=== PATIENT | male | born 1965 | race Caucasian/White ===

== ENCOUNTER 2017-11-18 00:05 | Day surgery (SDC) | payer MEDICARE, SELFPAY ==
[~2017-11-18 00:05] MED LIST: AMOCLA875 PO; ASPI325 PO; Bactrim Ds Tab1 EACH PO; CEPH500 PO; CIPR500 PO; CIPRO500 MG PO; CLOP75 PO; Cipro500 MG PO; Cleocin HCl150 MG PO; Cleocin HCl300 MG PO; Colace100 MG PO; FISH1000 PO; HYDR1TAB94 PO; Humalog Mi100 UNIT/4; INSN100I SC; INSR10I SC; Keflex500 MG PO; LEVEMIR FL100 UNIT/1 SC; LEVFLO500 PO; LOVA40; METF500 PO; METF500C PO; METO10 PO; MINO100 PO; OMEP20ER PO; ONDA4ODT MM; OXYACE5T PO; OXYACE7.5T PO; OXYC5 PO; Omeprazole20 M1 PO; PSYL5.85P PO; Percocet 5-3251 EACH PO; Pyridium200 MG PO; SULTRIDS PO; TOBR.3OPSO LEFTEYE; Vibramycin100 MG PO; [UNRECOGNIZED DRUG - OTHER] PO; [UNRECOGNIZED DRUG - OTHER] PO; [UNRECOGNIZED DRUG - REMARK]
[2018-01-23] MEDS ORDERED: INSDET100 PO (09:58)
[2018-01-23] MEDS ORDERED: AMOX TR K (10:04)
== END 2017-11-18 10:52 | disposition home or self-care (01) ==
LOC: WOUND 00:05
DX: Z48.00 Encounter for change or removal of nonsurgical wound dressing (principal); E11.59 Type 2 diabetes mellitus with other circulatory complications; L89.893 Pressure ulcer of other site, stage 3; E11.21 Type 2 diabetes mellitus with diabetic nephropathy; I70.232 Atherosclerosis of native arteries of right leg with ulceration of calf; F17.210 Nicotine dependence, cigarettes, uncomplicated; Z89.512 Acquired absence of left leg below knee; Z89.511 Acquired absence of right leg below knee; Z79.4 Long term (current) use of insulin
CPT/HCPCS: G0463

== ENCOUNTER 2017-11-25 12:27 | Day surgery (SDC) | payer MEDICARE, SELFPAY ==
[2018-01-23] MEDS ORDERED: INSDET100 PO (09:58)
[2018-01-23] MEDS ORDERED: AMOX TR K (10:04)
== END 2017-11-25 13:22 | disposition home or self-care (01) ==
LOC: WOUND 12:27
PROC: 2W0LX6Z Change Pressure Dressing on Right Lower Extremity (ICD-10-PCS; principal; 2017-11-25)
DX: Z48.00 Encounter for change or removal of nonsurgical wound dressing (principal); E11.621 Type 2 diabetes mellitus with foot ulcer; F17.218 Nicotine dependence, cigarettes, with other nicotine-induced disorders; L89.893 Pressure ulcer of other site, stage 3; I70.232 Atherosclerosis of native arteries of right leg with ulceration of calf; Z89.512 Acquired absence of left leg below knee; Z89.511 Acquired absence of right leg below knee

== ENCOUNTER 2017-11-28 00:26 | Day surgery (SDC) | payer MEDICARE, SELFPAY ==
[2018-01-23] MEDS ORDERED: INSDET100 PO (09:58)
[2018-01-23] MEDS ORDERED: AMOX TR K (10:04)
== END 2017-11-28 10:42 | disposition home or self-care (01) ==
LOC: ATC 00:26
DX: E11.622 Type 2 diabetes mellitus with other skin ulcer (principal); L97.812 Non-pressure chronic ulcer of other part of right lower leg with fat layer exposed; L97.821 Non-pressure chronic ulcer of other part of left lower leg limited to breakdown of skin; L85.9 Epidermal thickening, unspecified; E11.21 Type 2 diabetes mellitus with diabetic nephropathy; L89.891 Pressure ulcer of other site, stage 1; F17.218 Nicotine dependence, cigarettes, with other nicotine-induced disorders; I70.232 Atherosclerosis of native arteries of right leg with ulceration of calf; Z89.512 Acquired absence of left leg below knee; Z89.511 Acquired absence of right leg below knee
CPT/HCPCS: 99212

== ENCOUNTER 2017-11-30 00:22 | Day surgery (SDC) | payer MEDICARE, SELFPAY ==
[2018-01-23] MEDS ORDERED: INSDET100 PO (09:58)
[2018-01-23] MEDS ORDERED: AMOX TR K (10:04)
== END 2017-11-30 11:27 | disposition home or self-care (01) ==
LOC: ATC 00:22
DX: Z48.00 Encounter for change or removal of nonsurgical wound dressing (principal); I70.232 Atherosclerosis of native arteries of right leg with ulceration of calf; E11.622 Type 2 diabetes mellitus with other skin ulcer; L97.821 Non-pressure chronic ulcer of other part of left lower leg limited to breakdown of skin; L97.812 Non-pressure chronic ulcer of other part of right lower leg with fat layer exposed; F17.218 Nicotine dependence, cigarettes, with other nicotine-induced disorders; E11.21 Type 2 diabetes mellitus with diabetic nephropathy; Z89.512 Acquired absence of left leg below knee; Z89.511 Acquired absence of right leg below knee
CPT/HCPCS: 99212

== ENCOUNTER 2017-12-02 12:30 | Day surgery (SDC) | payer MEDICARE, SELFPAY ==
[2018-01-23] MEDS ORDERED: INSDET100 PO (09:58)
[2018-01-23] MEDS ORDERED: AMOX TR K (10:04)
== END 2017-12-02 15:38 | disposition home or self-care (01) ==
LOC: WOUND 12:30
PROC: 2W1QX6Z Compression of Right Lower Leg using Pressure Dressing (ICD-10-PCS; principal; 2017-12-02)
DX: Z48.00 Encounter for change or removal of nonsurgical wound dressing (principal); E11.21 Type 2 diabetes mellitus with diabetic nephropathy; E11.51 Type 2 diabetes mellitus with diabetic peripheral angiopathy without gangrene; F17.210 Nicotine dependence, cigarettes, uncomplicated; L89.893 Pressure ulcer of other site, stage 3; I70.232 Atherosclerosis of native arteries of right leg with ulceration of calf; Z89.511 Acquired absence of right leg below knee

== ENCOUNTER 2017-12-07 11:00 | Day surgery (SDC) | payer MEDICARE, SELFPAY ==
[2018-01-23] MEDS ORDERED: INSDET100 PO (09:58)
[2018-01-23] MEDS ORDERED: AMOX TR K (10:04)
== END 2017-12-07 14:52 | disposition home or self-care (01) ==
LOC: WOUND 11:00
PROC: 2W1QX6Z Compression of Right Lower Leg using Pressure Dressing (ICD-10-PCS; principal; 2017-12-07)
DX: Z48.00 Encounter for change or removal of nonsurgical wound dressing (principal); E11.21 Type 2 diabetes mellitus with diabetic nephropathy; F17.210 Nicotine dependence, cigarettes, uncomplicated; L89.893 Pressure ulcer of other site, stage 3; I70.232 Atherosclerosis of native arteries of right leg with ulceration of calf; Z89.512 Acquired absence of left leg below knee; Z89.511 Acquired absence of right leg below knee

== ENCOUNTER 2017-12-13 10:00 | Day surgery (SDC) | payer MEDICARE, SELFPAY ==
[2018-01-23] MEDS ORDERED: INSDET100 PO (09:58)
[2018-01-23] MEDS ORDERED: AMOX TR K (10:04)
== END 2017-12-13 12:54 | disposition home or self-care (01) ==
LOC: WOUND 10:00
PROC: 2W1QX6Z Compression of Right Lower Leg using Pressure Dressing (ICD-10-PCS; principal; 2017-12-13)
DX: Z48.00 Encounter for change or removal of nonsurgical wound dressing (principal); E11.21 Type 2 diabetes mellitus with diabetic nephropathy; F17.210 Nicotine dependence, cigarettes, uncomplicated; L89.893 Pressure ulcer of other site, stage 3; I70.232 Atherosclerosis of native arteries of right leg with ulceration of calf; Z79.4 Long term (current) use of insulin; Z89.512 Acquired absence of left leg below knee; Z89.511 Acquired absence of right leg below knee
CPT/HCPCS: G0463

== ENCOUNTER 2017-12-20 16:50 | Inpatient (IN) | payer MEDICARE, SELFPAY ==
[~2017-12-20] VITALS: Ht 157.5 cm; Wt 62.4 kg
[2017-12-20 18:05] LABS: BASOPHILS ABSOLUTE AUTO 0.07 K/mm3 (0.00-0.23); BASOPHILS PERCENT AUTO 1 % (0-2); EOSINOPHILS ABSOLUTE AUTO 0.23 K/mm3 (0.00-0.68); EOSINOPHILS PERCENT AUTO 3 % (0-6); Hematocrit 41.2 % (37.0-53.0); Hemoglobin 13.9 g/dL (13.5-17.5); IMMATURE GRAN ABSOLUTE AUTO 0.03 K/mm3 (0.00-0.10); IMMATURE GRAN PERCENT AUTO 0 % (0-1); LYMPHOCYTES PERCENT AUTO 22 % (21-46); MONOCYTES ABSOLUTE AUTO 0.53 K/mm3 (0.16-1.47); MONOCYTES PERCENT AUTO 6 % (4-13); Mean Corpuscular HGB 28.2 pg (26.0-34.0); Mean Corpuscular HGB Conc 33.7 g/dL (31.5-36.5); Mean Corpuscular Volume 84 fL (80-100); Mean Platelet Volume 9.2 fL (9.1-12.4); NEUTROPHILS ABSOLUTE AUTO 5.57 K/mm3 (1.96-9.15); NEUTROPHILS PERCENT AUTO 68 % (41-73); Platelet Count 235 K/mm3 (150-400); RDW Coefficient Variation 11.9 % (11.7-14.2); RDW Standard Deviation 36.2 fL (35.1-46.3); Red Blood Cell Count 4.93 M/mm3 (4.30-5.90); White Blood Cell Count 8.23 K/mm3 (4.00-11.30)
[2017-12-20 18:30] LABS: Alanine Aminotransfer (ALT/SGP 13 U/L (12-78); Albumin/Globulin Ratio 0.7 (0.8-1.8); Alk Phos 131 U/L (50-136); Anion Gap 7 mmol/L (6-16); Aspartate Aminotrans (AST/SGOT 7 U/L (12-37); Bilirubin, Total 0.4 mg/dL (0.1-1.0); Blood Urea Nitrogen 21 mg/dL (8-24); Bun/Creatinine Ratio 26.1 (12.0-20.0); CO2, Blood 29 mmol/L (21-32); Calcium, Blood 9.6 mg/dL (8.5-10.1); Chloride, Blood 97 mmol/L (98-108); Creatinine, Blood 0.81 mg/dL (0.60-1.20); Globulin, Blood 4.2 g/dL (2.2-4.0); Glomerular Filtration Rate >60 (60-); Glucose, Blood 439 mg/dL (70-99); Potassium, Blood 4.9 mmol/L (3.5-5.5); Sodium, Blood 133 mmol/L (136-145); Total Protein, Blood 7.2 g/dL (6.4-8.2)
[2017-12-21 05:41] LABS: BASOPHILS ABSOLUTE AUTO 0.09 K/mm3 (0.00-0.23); BASOPHILS PERCENT AUTO 1 % (0-2); EOSINOPHILS ABSOLUTE AUTO 0.37 K/mm3 (0.00-0.68); EOSINOPHILS PERCENT AUTO 4 % (0-6); Hematocrit 39.2 % (37.0-53.0); Hemoglobin 13.4 g/dL (13.5-17.5); IMMATURE GRAN ABSOLUTE AUTO 0.04 K/mm3 (0.00-0.10); IMMATURE GRAN PERCENT AUTO 0 % (0-1); LYMPHOCYTES ABSOLUTE AUTO 2.37 K/mm3 (0.84-5.20); LYMPHOCYTES PERCENT AUTO 24 % (21-46); MONOCYTES ABSOLUTE AUTO 0.78 K/mm3 (0.16-1.47); MONOCYTES PERCENT AUTO 8 % (4-13); Mean Corpuscular HGB Conc 34.2 g/dL (31.5-36.5); Mean Corpuscular Volume 85 fL (80-100); Mean Platelet Volume 9.1 fL (9.1-12.4); NEUTROPHILS ABSOLUTE AUTO 6.26 K/mm3 (1.96-9.15); NEUTROPHILS PERCENT AUTO 63 % (41-73); Platelet Count 265 K/mm3 (150-400); RDW Coefficient Variation 11.9 % (11.7-14.2); RDW Standard Deviation 36.9 fL (35.1-46.3); Red Blood Cell Count 4.62 M/mm3 (4.30-5.90); White Blood Cell Count 9.91 K/mm3 (4.00-11.30)
[2017-12-21 06:02] LABS: Anion Gap 6 mmol/L (6-16); Blood Urea Nitrogen 19 mg/dL (8-24); Bun/Creatinine Ratio 23.5 (12.0-20.0); CO2, Blood 31 mmol/L (21-32); Calcium, Blood 9.1 mg/dL (8.5-10.1); Chloride, Blood 98 mmol/L (98-108); Creatinine, Blood 0.81 mg/dL (0.60-1.20); Glomerular Filtration Rate >60 (60-); Glucose, Blood 318 mg/dL (70-99); Potassium, Blood 4.4 mmol/L (3.5-5.5); Sodium, Blood 135 mmol/L (136-145)
[2017-12-24 04:53] LABS: BASOPHILS ABSOLUTE AUTO 0.06 K/mm3 (0.00-0.23); BASOPHILS PERCENT AUTO 1 % (0-2); EOSINOPHILS ABSOLUTE AUTO 0.24 K/mm3 (0.00-0.68); EOSINOPHILS PERCENT AUTO 3 % (0-6); Hematocrit 34.5 % (37.0-53.0); Hemoglobin 11.5 g/dL (13.5-17.5); IMMATURE GRAN ABSOLUTE AUTO 0.02 K/mm3 (0.00-0.10); IMMATURE GRAN PERCENT AUTO 0 % (0-1); LYMPHOCYTES ABSOLUTE AUTO 1.46 K/mm3 (0.84-5.20); LYMPHOCYTES PERCENT AUTO 18 % (21-46); MONOCYTES ABSOLUTE AUTO 0.76 K/mm3 (0.16-1.47); MONOCYTES PERCENT AUTO 9 % (4-13); Mean Corpuscular HGB 28.3 pg (26.0-34.0); Mean Corpuscular HGB Conc 33.3 g/dL (31.5-36.5); Mean Corpuscular Volume 85 fL (80-100); NEUTROPHILS ABSOLUTE AUTO 5.71 K/mm3 (1.96-9.15); NEUTROPHILS PERCENT AUTO 69 % (41-73); Platelet Count 198 K/mm3 (150-400); RDW Coefficient Variation 11.9 % (11.7-14.2); RDW Standard Deviation 36.4 fL (35.1-46.3); Red Blood Cell Count 4.07 M/mm3 (4.30-5.90); White Blood Cell Count 8.25 K/mm3 (4.00-11.30)
[2017-12-24 05:18] LABS: Anion Gap 6 mmol/L (6-16); Blood Urea Nitrogen 16 mg/dL (8-24); Bun/Creatinine Ratio 19.4 (12.0-20.0); CO2, Blood 31 mmol/L (21-32); Calcium, Blood 8.8 mg/dL (8.5-10.1); Chloride, Blood 101 mmol/L (98-108); Creatinine, Blood 0.82 mg/dL (0.60-1.20); Glomerular Filtration Rate >60 (60-); Glucose, Blood 238 mg/dL (70-99); Potassium, Blood 3.9 mmol/L (3.5-5.5); Sodium, Blood 138 mmol/L (136-145)
[2017-12-25 08:10] LABS: Anion Gap 6 mmol/L (6-16); Blood Urea Nitrogen 13 mg/dL (8-24); Bun/Creatinine Ratio 18.5 (12.0-20.0); CO2, Blood 30 mmol/L (21-32); Calcium, Blood 8.7 mg/dL (8.5-10.1); Chloride, Blood 100 mmol/L (98-108); Glomerular Filtration Rate >60 (60-); Glucose, Blood 225 mg/dL (70-99); Sodium, Blood 136 mmol/L (136-145)
[2017-12-25] MEDS ORDERED: NESINA25 MG PO (09:26)
[2017-12-25] MEDS ORDERED: Juven1 EACH PO (09:26)
[2017-12-25] MEDS ORDERED: ASCO500 PO (09:27)
[2017-12-25] MEDS ORDERED: DOCU100 PO (09:27)
[2017-12-25] MEDS ORDERED: LEVEMIR FL100 UNIT/1 SC (09:28)
[2017-12-25] MEDS ORDERED: Augmentin 875-1 EACH PO (09:33)
[2017-12-25] MEDS ORDERED: THERA TABLET400 MCG PO (09:33)
[2017-12-25] MEDS ORDERED: ZINC220 PO (09:33)
[2017-12-25] MEDS ORDERED: Percocet 5-3251 EACH PO (09:35)
[2018-01-23] MEDS ORDERED: INSDET100 PO (09:58)
[2018-01-23] MEDS ORDERED: AMOX TR K (10:04)
== END 2017-12-25 15:25 | disposition home or self-care (01) | DRG 982 ==
LOC: ER 16:50 → MEDS 19:30 → ENPENDDIS 12-25 09:02 → MEDS 12-25 15:25
PROVIDERS: Internal Medicine; Internal Medicine Endocrinology, Diabetes & Metabolism; Orthopaedic Surgery; Physician Assistant
PROC: 3E0234Z Introduction of Serum, Toxoid and Vaccine into Muscle, Percutaneous Approach (ICD-10-PCS; 2017-12-21)
PROC: 0QBG0ZZ Excision of Right Tibia, Open Approach (ICD-10-PCS; principal; 2017-12-23 15:15)
DX: E11.69 Type 2 diabetes mellitus with other specified complication (principal); M86.9 Osteomyelitis, unspecified; E11.51 Type 2 diabetes mellitus with diabetic peripheral angiopathy without gangrene; E11.622 Type 2 diabetes mellitus with other skin ulcer; K31.84 Gastroparesis; E11.40 Type 2 diabetes mellitus with diabetic neuropathy, unspecified; E11.3599 Type 2 diabetes mellitus with proliferative diabetic retinopathy without macular edema, unspecified eye; E87.1 Hypo-osmolality and hyponatremia; L97.119 Non-pressure chronic ulcer of right thigh with unspecified severity; L97.819 Non-pressure chronic ulcer of other part of right lower leg with unspecified severity; Z23 Encounter for immunization; Z89.512 Acquired absence of left leg below knee; Z89.511 Acquired absence of right leg below knee; F17.210 Nicotine dependence, cigarettes, uncomplicated; K21.9 Gastro-esophageal reflux disease without esophagitis; Z66 Do not resuscitate; Z91.19 Patient's noncompliance with other medical treatment and regimen; E11.65 Type 2 diabetes mellitus with hyperglycemia; E11.43 Type 2 diabetes mellitus with diabetic autonomic (poly)neuropathy; Z99.3 Dependence on wheelchair
CPT/HCPCS: 36415; 78300; 78315; 80048; 80053; 82947; 83036; 84681; 85025; 85651; 86140; 87070; 87075; 87077; 87147; 87186; 87205; 93005; 93010; 96361; 96374; 96375; 99285; A9270; A9503; C9113; G0463; J1170; J1650; J1815; J2250; J2543; J3010; J7030; J7120

== ENCOUNTER 2017-12-28 00:07 | Day surgery (SDC) | payer MEDICARE, SELFPAY ==
[~2017-12-28 00:07] MED LIST changes: +ASCO500 PO; +Augmentin 875-1 EACH PO; +DOCU100 PO; +Juven1 EACH PO; +NESINA25 MG PO; +THERA TABLET400 MCG PO; +ZINC220 PO
[2018-01-23] MEDS ORDERED: INSDET100 PO (09:58)
[2018-01-23] MEDS ORDERED: AMOX TR K (10:04)
== END 2017-12-28 11:40 | disposition home or self-care (01) ==
LOC: WOUND 00:07
DX: Z48.00 Encounter for change or removal of nonsurgical wound dressing (principal); E11.21 Type 2 diabetes mellitus with diabetic nephropathy; E11.622 Type 2 diabetes mellitus with other skin ulcer; F17.210 Nicotine dependence, cigarettes, uncomplicated; L89.893 Pressure ulcer of other site, stage 3; I70.232 Atherosclerosis of native arteries of right leg with ulceration of calf; Z89.511 Acquired absence of right leg below knee
CPT/HCPCS: G0463

== ENCOUNTER 2018-01-02 00:13 | Day surgery (SDC) | payer MEDICARE, SELFPAY ==
[2018-01-23] MEDS ORDERED: INSDET100 PO (09:58)
[2018-01-23] MEDS ORDERED: AMOX TR K (10:04)
== END 2018-01-02 14:34 | disposition home or self-care (01) ==
LOC: WOUND 00:13
PROC: 0KBS0ZZ Excision of Right Lower Leg Muscle, Open Approach (ICD-10-PCS; principal; 2018-01-02)
DX: Z48.00 Encounter for change or removal of nonsurgical wound dressing (principal); E11.69 Type 2 diabetes mellitus with other specified complication; M86.8X6 Other osteomyelitis, lower leg; B96.89 Other specified bacterial agents as the cause of diseases classified elsewhere; B95.61 Methicillin susceptible Staphylococcus aureus infection as the cause of diseases classified elsewhere; L89.893 Pressure ulcer of other site, stage 3; E11.622 Type 2 diabetes mellitus with other skin ulcer; T81.89XA Other complications of procedures, not elsewhere classified, initial encounter; L97.912 Non-pressure chronic ulcer of unspecified part of right lower leg with fat layer exposed; I70.232 Atherosclerosis of native arteries of right leg with ulceration of calf; E11.21 Type 2 diabetes mellitus with diabetic nephropathy; F17.218 Nicotine dependence, cigarettes, with other nicotine-induced disorders; Z89.512 Acquired absence of left leg below knee; Z89.511 Acquired absence of right leg below knee
CPT/HCPCS: G0463

== ENCOUNTER 2018-01-09 00:02 | Day surgery (SDC) | payer MEDICARE, SELFPAY ==
[2018-01-23] MEDS ORDERED: INSDET100 PO (09:58)
[2018-01-23] MEDS ORDERED: AMOX TR K (10:04)
== END 2018-01-09 10:29 | disposition home or self-care (01) ==
LOC: WOUND 00:02
DX: Z48.01 Encounter for change or removal of surgical wound dressing (principal); E11.69 Type 2 diabetes mellitus with other specified complication; M86.9 Osteomyelitis, unspecified; Z89.512 Acquired absence of left leg below knee; Z89.511 Acquired absence of right leg below knee; F17.210 Nicotine dependence, cigarettes, uncomplicated; E11.21 Type 2 diabetes mellitus with diabetic nephropathy; I73.9 Peripheral vascular disease, unspecified; L89.893 Pressure ulcer of other site, stage 3; I70.232 Atherosclerosis of native arteries of right leg with ulceration of calf
CPT/HCPCS: G0463

== ENCOUNTER 2018-01-16 00:19 | Day surgery (SDC) | payer MEDICARE, SELFPAY ==
[2018-01-23] MEDS ORDERED: INSDET100 PO (09:58)
[2018-01-23] MEDS ORDERED: AMOX TR K (10:04)
== END 2018-01-16 12:14 | disposition home or self-care (01) ==
LOC: WOUND 00:19
DX: Z48.01 Encounter for change or removal of surgical wound dressing (principal); Z89.512 Acquired absence of left leg below knee; Z89.511 Acquired absence of right leg below knee; E11.21 Type 2 diabetes mellitus with diabetic nephropathy; F17.218 Nicotine dependence, cigarettes, with other nicotine-induced disorders; L89.893 Pressure ulcer of other site, stage 3; I70.232 Atherosclerosis of native arteries of right leg with ulceration of calf; T81.89XA Other complications of procedures, not elsewhere classified, initial encounter
CPT/HCPCS: G0463

== ENCOUNTER 2018-01-25 06:00 | Inpatient (IN) | payer MEDICARE, SELFPAY ==
[~2018-01-25] VITALS: Ht 182.9 cm; Wt 62.1 kg
[~2018-01-25 06:00] MED LIST changes: +AMOX TR K; +INSDET100 PO
[2018-01-25 11:07] LABS: Hematocrit 33.1 % (37.0-53.0); Hemoglobin 10.9 g/dL (13.5-17.5)
[2018-01-25] MEDS ORDERED: Omeprazole20 M1 PO (11:17)
[2018-01-26 06:10] LABS: BASOPHILS ABSOLUTE AUTO 0.03 K/mm3 (0.00-0.23); BASOPHILS PERCENT AUTO 0 % (0-2); EOSINOPHILS ABSOLUTE AUTO 0.02 K/mm3 (0.00-0.68); EOSINOPHILS PERCENT AUTO 0 % (0-6); Hematocrit 30.5 % (37.0-53.0); Hemoglobin 9.8 g/dL (13.5-17.5); IMMATURE GRAN ABSOLUTE AUTO 0.03 K/mm3 (0.00-0.10); IMMATURE GRAN PERCENT AUTO 0 % (0-1); LYMPHOCYTES ABSOLUTE AUTO 1.73 K/mm3 (0.84-5.20); LYMPHOCYTES PERCENT AUTO 18 % (21-46); MONOCYTES ABSOLUTE AUTO 0.77 K/mm3 (0.16-1.47); MONOCYTES PERCENT AUTO 8 % (4-13); Mean Corpuscular HGB 27.8 pg (26.0-34.0); Mean Corpuscular HGB Conc 32.1 g/dL (31.5-36.5); Mean Corpuscular Volume 86 fL (80-100); Mean Platelet Volume 9.2 fL (9.1-12.4); NEUTROPHILS ABSOLUTE AUTO 6.99 K/mm3 (1.96-9.15); NEUTROPHILS PERCENT AUTO 73 % (41-73); Platelet Count 170 K/mm3 (150-400); RDW Coefficient Variation 12.9 % (11.7-14.2); RDW Standard Deviation 40.4 fL (35.1-46.3); Red Blood Cell Count 3.53 M/mm3 (4.30-5.90); White Blood Cell Count 9.57 K/mm3 (4.00-11.30)
[2018-01-26 06:35] LABS: Alanine Aminotransfer (ALT/SGP 21 U/L (12-78); Albumin, Blood 2.9 g/dL (3.4-5.0); Albumin/Globulin Ratio 0.9 (0.8-1.8); Alk Phos 131 U/L (50-136); Anion Gap 7 mmol/L (6-16); Aspartate Aminotrans (AST/SGOT 10 U/L (12-37); Bilirubin, Total 0.2 mg/dL (0.1-1.0); Blood Urea Nitrogen 24 mg/dL (8-24); Bun/Creatinine Ratio 37.8 (12.0-20.0); CHOL/HDL RATIO 7.4; CO2, Blood 29 mmol/L (21-32); Calcium, Blood 8.8 mg/dL (8.5-10.1); Chloride, Blood 101 mmol/L (98-108); Cholesterol 236 mg/dL (50-200); Creatinine, Blood 0.64 mg/dL (0.60-1.20); Globulin, Blood 3.3 g/dL (2.2-4.0); Glomerular Filtration Rate >60 (60-); Glucose, Blood 266 mg/dL (70-99); HDL Cholesterol 32 mg/dL (>39); Magnesium, Blood 1.8 mg/dL (1.6-2.4); Potassium, Blood 4.4 mmol/L (3.5-5.5); Sodium, Blood 137 mmol/L (136-145); Total Protein, Blood 6.2 g/dL (6.4-8.2); Triglycerides 412 mg/dL (30-160); Very Low Density Lipoprot Chol Unable to Calculate mg/dL (6-32)
[2018-01-26 06:36] LABS: LDL/HDL RATIO Unable to Calculate; Low Density Lipoprotein Chol Unable to Calculate mg/dL (0-110)
[2018-01-26] MEDS ORDERED: Percocet 5-3251 EACH PO (12:37)
[2018-01-26] MEDS ORDERED: DOCU100 PO (12:38)
[2018-01-26] MEDS ORDERED: Lisinopril2.5 MG PO (12:39)
[2018-01-26] MEDS ORDERED: ATOR10 PO (12:39)
[2018-01-26] MEDS ORDERED: METO10 PO (12:40)
== END 2018-01-26 12:30 | disposition home or self-care (01) | DRG 617 ==
LOC: SURS 06:00
PROVIDERS: Orthopaedic Surgery
PROC: 0Y6C0Z1 Detachment at Right Upper Leg, High, Open Approach (ICD-10-PCS; principal; 2018-01-25 07:30)
DX: E11.69 Type 2 diabetes mellitus with other specified complication (principal); M86.9 Osteomyelitis, unspecified; K31.84 Gastroparesis; E11.65 Type 2 diabetes mellitus with hyperglycemia; E11.43 Type 2 diabetes mellitus with diabetic autonomic (poly)neuropathy; Z68.1 Body mass index [BMI] 19.9 or less, adult; F17.210 Nicotine dependence, cigarettes, uncomplicated; K21.9 Gastro-esophageal reflux disease without esophagitis; Z79.4 Long term (current) use of insulin
CPT/HCPCS: 36415; 80048; 80053; 80061; 82947; 83036; 83735; 85014; 85018; 85025; 88307; 88311; 97110; 97162; 97530; G8978; G8979; G8980; J0690; J1100; J1170; J1815; J1817; J2250; J2370; J2405; J2765; J3010; J7030; J7120

== ENCOUNTER 2019-01-02 16:21 | Inpatient (IN) | payer MEDICARE ==
[~2019-01-02] VITALS: Ht 177.8 cm; Wt 61.4 kg
[~2019-01-02 16:21] MED LIST changes: +ATOR10 PO; +Lisinopril2.5 MG PO
[2019-01-02 16:40] LABS: Calcium, Ionized (POC) 1.45 mmol/L (1.10-1.46); Chloride (POC) 75 mmol/L (98-108); Glucose (ISTAT POC) 279 mg/dL (70-99); Hemoglobin (POC) 10.2 g/dL (13.5-17.5); Potassium (POC) 4.9 mmol/L (3.5-5.5); Sodium (POC) 123 mmol/L (135-148); Total CO2 (POC) 38 mmol/L (21-32)
[2019-01-02 16:45] LABS: Hemoglobin 11.2 g/dL (13.5-17.5); Mean Corpuscular HGB 29.1 pg (26.0-34.0); Mean Corpuscular Volume 83 fL (80-100); Mean Platelet Volume 9.9 fL (9.1-12.4); Platelet Count 179 K/mm3 (150-400); RDW Coefficient Variation 11.7 % (11.7-14.2); RDW Standard Deviation 35.1 fL (35.1-46.3); Red Blood Cell Count 3.85 M/mm3 (4.30-5.90); White Blood Cell Count 5.26 K/mm3 (4.00-11.30)
[2019-01-02 17:17] LABS: Troponin I 0.022 ng/mL (0.000-0.040)
[2019-01-02 17:18] LABS: BAND PERCENT MAN 11 % (0-8); BASOPHILS PERCENT MAN 0 % (0-2); EOSINOPHILS PERCENT MAN 0 % (0-6); LYMPHOCYTES ABSOLUTE MAN 0.57 K/mm3 (0.84-5.20); LYMPHOCYTES PERCENT MAN 11 % (21-46); METAMYELOCYTE ABSOLUTE MAN 0.73 K/mm3 (0.00-0.00); METAMYELOCYTE PERCENT MAN 14 % (0-0); MONOCYTES ABSOLUTE MAN 0.47 K/mm3 (0.16-1.47); MONOCYTES PERCENT MAN 9 % (4-13); MYELOCYTE ABSOLUTE MAN 0.05 K/mm3 (0.00-0.00); MYELOCYTE PERCENT MAN 1 % (0-0); NEUTROPHILS ABSOLUTE MAN 3.41 K/mm3 (1.96-9.15); SEG NEUTROPHILS PERCENT MAN 54 % (41-73); TOTAL CELLS COUNTED 100
--- NOTE | 2019-01-02 17:56 | NUR ---
Initial Visit: Palliative Care Consult for goals of care. Pt is A&O x3 and reports 7/10 pain in his abdomen. His Marquita is present during visit. Pt reports 4/10 anxiety due to wanting to be home. Initialy Pt refused Larry Catheter but is now will to accept due to the discomfort he is having. Pt lives at home with Marquita who is his primary caregiver. Marquita reports Pt had oppertunities in the past for caregivers to assist with his needs in the home but refuses. Marquita reports Pt has uncontroled diabetes and is non compliant with his management. He has had 5 digits and extremity amputations. Marquita reports the Pt is not open to any worship beliefs. She reports the Pt is comfort measures only and his wishes are to recieve hospice services and pass away at home. Pt reports that he does not want to be admitted to hospital on comfort measures. Marquita states that she would like to wait for the diognostic results before making any further decision about Pt discharging home from the ED. Spoke with Pt's nurse Jane before visiting with Pt and she reported Pt wants hospice services. Discussion was made about the [facility] Spoke with Dr Irving before Pt visit. She reports willing to admit Pt on comfort care if he is willing to accept. After visist spoke Dr Irving about Pt's refusal to be admitted for comfort care and Pt's discussion about waiting for further test results before making any decisions. Dr Irving reports results show Pt has pneumonia and she will offer admiting Pt. Plan: Will F/U with Pt on the floor if he is admitted.
[2019-01-02 18:02] LABS: Alanine Aminotransfer (ALT/SGP 9 U/L (12-78); Albumin, Blood 2.3 g/dL (3.4-5.0); Albumin/Globulin Ratio 0.7 (0.8-1.8); Alk Phos 65 U/L (50-136); Anion Gap 11 mmol/L (6-16); Aspartate Aminotrans (AST/SGOT <3 U/L (12-37); Bilirubin, Total 0.4 mg/dL (0.1-1.0); Blood Urea Nitrogen 190 mg/dL (8-24); Bun/Creatinine Ratio 21.5 (12.0-20.0); CO2, Blood 37 mmol/L (21-32); Calcium, Blood 12.1 mg/dL (8.5-10.1); Chloride, Blood 78 mmol/L (98-108); Creatinine, Blood 8.83 mg/dL (0.60-1.20); Globulin, Blood 3.4 g/dL (2.2-4.0); Glomerular Filtration Rate 7 (60-); Glucose, Blood 274 mg/dL (70-99); Magnesium, Blood 6.5 mg/dL (1.6-2.4); Potassium, Blood 4.9 mmol/L (3.5-5.5); Sodium, Blood 126 mmol/L (136-145); Total Protein, Blood 5.7 g/dL (6.4-8.2)
[2019-01-02 18:22] LABS: Source, Urine Clean Catch
[2019-01-02] MEDS ORDERED: **INCOMPLETE MED REC (18:22)
[2019-01-02 18:30] LABS: Appearance, Urine Clear (Clear); Bilirubin, Urine Neg (Neg); Blood, Urine 1+ (Neg); Color, Urine Yellow (P-Yellow); Glucose Qualitative, Urine 3+ (Neg); Ketones, Urine Neg (Neg); Leukocyte Esterase, Urine 1+ (Neg); Nitrite, Urine Neg (Neg); Protein, Urine 2+ (Neg); Specific Gravity, Urine 1.015 (1.003-1.022); Urobilinogen, Urine NORM (Normal)
[2019-01-02 18:45] LABS: Red Blood Cells, Urine 0-2 /hpf (0-2)
[2019-01-02 18:46] LABS: Amorphous Mod (0-Heavy); Bacteria Mod /hpf; Squamous Epithelial Cells Not Seen /hpf (Few)
[2019-01-02] MEDS ORDERED: Omeprazole20 M1 PO (18:51)
[2019-01-02 18:59] LABS: International Normalized Ratio 1.16; Prothrombin Time Results 12.1 Sec (9.7-11.5)
[2019-01-02 19:23] LABS: Influenza A Negative (NEGATIVE); Influenza B Negative (NEGATIVE)
[2019-01-02 20:19] LABS: Phosphorus, Blood 5.4 mg/dL (2.5-4.9); Uric Acid, Blood 12.1 mg/dL (3.5-7.2)
[2019-01-02 20:22] LABS: U Amphetamine Screen Not Detected; U Barbituate Screen Not Detected; U Benzodiazapine Screen Not Detected; U Buprenorphine Screen Not Detected; U Cannabinoids Screen Not Detected; U Cocaine Screen Not Detected; U Methadone Screen Not Detected; U Methamphetamine Screen Not Detected; U Opiates Screen Not Detected; U Oxycodone Screen Not Detected; U Phencyclidine Screen Not Detected; U Propoxyphene Screen Not Detected
[2019-01-02 20:31] LABS: Creatinine, Urine Random 48.5 mg/dL (27.00-270.00)
[2019-01-02 22:46] LABS: Bun/Creatinine Ratio 22.9 (12.0-20.0); Creatinine, Blood 8.17 mg/dL (0.60-1.20); Potassium, Blood 5.1 mmol/L (3.5-5.5)
--- NOTE | 2019-01-03 05:03 | NUR ---
SHIFT SUMMARY PT IS A 53 Y/O MALE, ADMITTED ON COMFORT CARE FOR SEPTIC SHOCK. THE PT HAS BEEN VERY CONFUSED AND DISORIENTED DURING THE NIGHT, HALLUCINATING AND GRABBING AT THE AIR. THE PT APPEARED COMFORTABLE DURING THE NIGHT, NO SIGNS OR SYPMTOMS OF ACUTE SOB OR PAIN. THE PT REMAINED ON FLUIDS DURING THE NIGHT, NS AT 125/HR. THE PT'S REMAINED AT BEDSIDE DURING THE NIGHT, AND SAID THAT "IF HE DOESN'T SHOW ANY IMPROVEMENT BY NOON, I WANT TO STOP ALL OF THIS. HE WOULDN'T WANT THIS." NO OTHER ACUTE CHANGES IN PT CONDITION NOTED. WILL CONTINUE TO MONITOR AND TREAT.
--- NOTE | 2019-01-03 08:46 | NUR ---
MICRO CALLED [facility] A CRITICAL HIGH VALUE. WILL CONTACT DR. MACIAS TO INFORM HIM.
--- NOTE | 2019-01-03 10:28 | NUR ---
PT'S CALMS THE PT WHEN ANXIOUS. HIS HELPS REPOSITION HIM IN BED TO HELP DYSPNEA. PT NON-VERBAL. HE HAS A DELUSION THAT HE IS SMOKING A CIGGARETTE.
--- NOTE | 2019-01-03 11:04 | NUR ---
Pt visit this AM. Pt is resting in bed and appears anxious as evidenced by moaning and constant moving of arms and legs. PAINAD score is 3/10. Pt's Marqiuta is present during visit. Marquita reports that comfort care measure only has been decided. Educated Marquita on philosophy of comfort measures only with V/U made by Marquita. Marquita tearful at times during visit. Offered emotional support and allowed Marquita to express concerns. Spoke with Pt's nurse Prachi and she is agreeable with plan for comfort care. Spoke with Dr Whatley and he is agreeable with plan. Place comfort care orders and placed comfort care order set per V/O from Dr Whatley. Plan is for continued monitoring of symptom management. Will remain available.
--- NOTE | 2019-01-03 16:10 | NUR ---
Pt/family are non-pentecostal. I met with Ryley's sister outside of room. She was tearful, but accepting of POC. She repsonded well to gentle pre parole counseling aide and encouragement. Comfort cart in place for family. Encouraged self-care. I will remain available.
--- NOTE | 2019-01-03 17:13 | NUR ---
PT TRANSPORTED TO DAY SURGERY AT 4:45 FOR EGD.
--- NOTE | 2019-01-03 18:00 | NUR ---
FAMILY HAS BEEN AT THE BESIDE ALL DAY. THE SPOUSE IS THE PT'S POWER OF REELING MACHINE SETUP OPERATOR. SHE COMMUNICATED HIS WISHES FOR COMFORT CARE TODAY WITH ISTRATE. THE PT HAS BEEN RESTLESS AND DYSPNEIC TODAY, MEDICATED PER EMAR. THE SPOUSE CAN CONSOLE THE PT WELL WITH TOUCH OR TALKING TO HIM. THE PT IS A DOUBLE AMPUTEE, RIGHT AKA, LEFT HUYEN.
--- NOTE | 2019-01-03 20:50 | NUR ---
PT RESTING QUIETLY WITH EYES CLOSED. NO COMPLAINTS. FAMILY AT THE BEDSIDE. WILL CONTINUE TO MONITOR.
--- NOTE | 2019-01-03 22:48 | NUR ---
PT LYING IN BED WITH EYES CLOSED, RESTING QUIETLY. FAMILY AT THE BEDSIDE. NO COMPLAINTS. FAMILY STATES THAT HE HAS NO NEEDS AT THIS TIME. WILL CONTINUE TO MONITOR.
--- NOTE | 2019-01-04 12:30 | NUR ---
PT RESTING QUIETLY SINCE THIS RN ADMINISTERED ATIVAN FOR RESTLESSNESS THIS AM. PT'S FAMILY AT BEDSIDE. DELCLINED TO HAVE STAFF REPOSITION PT. NO REQUESTS OR COMPLAINTS FROM FAMILY. PT APPEARS VERY COMFORTABLE AT THIS TIME. WILL CONTINUE TO MONITOR FOR COMFORT.
--- NOTE | 2019-01-04 17:29 | NUR ---
Pt is laying in bed supine. He appears to be resting comfortably. No questions from the or other family members. reports that he has been very calm today. She is happy with this and reports this is a huge change from when she brought him into the ER. She states he was agitated and unmanagable at home. Pt appears comfortable. No s/s of distress, meds and notes reviewed. Will remain available.
--- NOTE | 2019-01-04 19:33 | NUR ---
SHIFT SUMMARY THIS RN ADMINISTERED IV ATIVAN THIS AM WHEN PT WAS RESTLESS AND PT HAS BEEN RESTING SINCE. NO SIGNS OF DISCOMOFT THE REST OF THE SHIFT. PT ASKS FOR THINGS FROM FAMILY BUT THEN IS NOT AWAKE ENOUGH TO DRINK/EAT. FAMILY AT BEDSIDE ALL OF SHIFT. NO REQUESTS FROM FAMILY THIS SHIFT. FAMILY DID DECLINE FOR STAFF TO TURN HIM THIS SHIFT. FAMILY REPORTS THEY WANTED HIM TO FINALLY REST. FAMILY REPORTS TURNING PT THEMSELVES WHEN THIS RN IN TO CHECK ON HIM AND WHILE GETTING REPORT. NO ACUTE CHANGES. REPORT GIVEN TO NOC RN.
--- NOTE | 2019-01-05 00:14 | NUR ---
PT LYING IN BED. DENIES NEEDS AT THIS TIME
--- NOTE | 2019-01-05 00:15 | NUR ---
PT PREVIOUSLY TREATED FOR PAIN. RESTING AND PAIN FREE AT THIS TIME.
--- NOTE | 2019-01-05 01:45 | NUR ---
PT APPEARS TO BE SLEEPING COMFORTABLY. FAMILY IN ROOM. THEY STATE THEY HAVE NO NEEDS AT THIS TIME.
--- NOTE | 2019-01-05 03:53 | NUR ---
ASKED FOR WHOLE MILK IN ICE FOR PT. A CUP WAS BROUGHT TO HER AND SHE IS FEEDING IT TO HIM PER HER PREFERENCE. PT APPEARS COMFORTABLE.
--- NOTE | 2019-01-05 04:36 | NUR ---
NOC SHIFT SUMMARY PT HAS BEEN RESTING IN HIS BED THIS NIGHT. FAMILY IN ROOM. THEY STATE THEY WILL LET STAFF KNOW WHEN PT NEEDS REPOSITIONED. PT MEDICATED FOR PAIN X1. AFTER THIS PT WAS ABLE TO BE PAIN FREE AND SLEEP. PT HAS SLEPT MOST OF THE NIGHT. AWOKE EARLY AND REQUESTED MILK, THIS WAS PROVIDED. CURRENTLY RESTING COMFORTABLY. WILL CONTINUE TO MONITOR.
--- NOTE | 2019-01-05 11:16 | NUR ---
PT RESTING COMFORTABLY, APPEARS TO BE SLEEPING. FAMILY REQUESTING PT NOT BE DISTURBED.
--- NOTE | 2019-01-05 11:17 | NUR ---
FAMILY AT BEDSIDE, NO S/SX OF DISTRESS OR DISCOMFORT. FAMILY REPORTS THEY HAVE REPOSITIONED PT. PT APPEARS TO BE SLEEPING.
--- NOTE | 2019-01-05 13:45 | NUR ---
1215 PT AWAKE, LETHARGIC, PT REPORTS MILD GENERALIZED PAIN, PRN ROXONOL 10MG SL GIVEN. 1320 PT APPEARS TO BE SLEEPING. NO S/SX OF DISCOMFORT OR DISTRESS. FAMILY AT BEDSIDE.
--- NOTE | 2019-01-05 17:09 | NUR ---
SHIFT SUMMARY. PT LETHARGIC, APPEARS TO BE SLEEPING COMFORTABLY THROUGHOUT MOST OF THE SHIFT. PT REPORTED PAIN ONCE, MANAGED WELL WITH CURRENT ORDERS. FAMILY AT BEDSIDE ALL SHIFT, ASSISTING PT WITH REPOSITIONING, FEEDING AND EMOTIONAL SUPPORT. NO NEW CHANGES.
--- NOTE | 2019-01-05 18:00 | NUR ---
family at bedside pt comfortable
--- NOTE | 2019-01-05 22:55 | NUR ---
pT IS SLEEPING, HAD PAIN MED AT END OF DAY SHIFT. fAMILY IS DOING MOST OF PT CARES. RESTING QUIETLY AT THIS TIME. NO NEEDS OR DISCOMFORT NOTED.
--- NOTE | 2019-01-06 01:04 | NUR ---
01/06/19 0050 Pt is resting quetly on his back, daughters in room. No distress or discomfort noted. Call light remains in reach.
--- NOTE | 2019-01-06 05:33 | NUR ---
Rn summary: Patient has slept all night. He has not required any pain meds. Family is at bedside and sees to all his pysical care such as turning/repositioning. Pt's eyes have been closed and no verbal response when nurse in room. Family states he is sleeping and has no c/o pain. Checks done at least q 2 hours. Pt condition remains the same. Comfort care measures.
--- NOTE | 2019-01-06 10:52 | NUR ---
BED BATH COMPLETED BY CAMP RECREATION SPECIALIST AND . PATIENT DENIES ANY PAIN. ZARAGOZA TO GRAVITY, DRAINING ADEQUATE AMOUNT OF CLEAR YELLOW URINE.
--- NOTE | 2019-01-06 14:45 | NUR ---
FAMILY REMAINS AT BEDSIDE. ASSISTING WITH FEEDING, ORAL CARE AND REPOSITIONING. FAMILY DENIES ANY NEEDS AT THIS TIME.
--- NOTE | 2019-01-06 16:51 | NUR ---
FAMILY AT BEDSIDE THROUGHOUT THE SHIFT. FAMILY ASSISTS WITH CARE, FEEDING AND REPOSITIONING. PATIENT MEDICATED X2 THIS SHIFT FOR GENERALIZED PAIN. ZARAGOZA TO GRAVITY DRAINING CLEAR/YELLOW URINE. TOLERATING SMALL AMOUNTS OF REGULAR DIET. PATIENT IS ON RA, NO SOB OR AIR HUNGER AT REST.
--- NOTE | 2019-01-07 05:35 | NUR ---
SHIFT SUMMARY PT HAS RESTED T/O MOST OF THE NIGHT. WAKES UP OCCASIONALLY, ABLE TO ANSWER SOME QUESTIONS. REQUESTS TO LISTEN TO MUSIC. FAMILY PUT ON SOME MUSIC FOR PT USING [employer] PHONES. PT MEDICATED FOR PAIN X1. PT ABLE TO TELL ME THE LEVEL OF HIS PAIN. MEDICATED WITH ROXANOL WITH AFFECT. COMFORT ASSESSED T/O SHIFT. PT FAMILY AT BEDSIDE AND ARE IN GOOD SPIRITS. DENIES NEEDS T/O THE NIGHT. WILL CONTINUE TO MONITOR AND REPORT TO ONCOMING RN.
--- NOTE | 2019-01-07 08:00 | NUR ---
FAMILY AT BEDSIDE ASSISTING WITH CARE, FEEDING AND REPOSITIONING. PATIENT WOKE BRIEFLY, DENIES ANY NEEDS AT THIS TIME. FAMILY INSTRUCTED TO CALL FOR ASSISTANCE.
--- NOTE | 2019-01-07 12:00 | NUR ---
PAL CARE COMFORT CARE VISIT: Assessed for s/s and found pt sleeping on right side, appearing comfortable while asleep. He did not have any nonverbal indicators of pain, anxiety, dyspnea or distress. Respirations even and only sl labored. 5 Family members in room and tending to his needs. I offered to assist with turning him and they stated they had just done that. Pt did not wake to verbal or gentle tactile stimuli. Time spent listening to family reminisce and talk about their experiences with him. stated he had been hurting and ill for some time and had been a "cranky old fart" because of his suffering. During his hospital stay, once comfortable, she reports he has begun talking kindly and sweetly to her, "like he used to" and this has been a very emotional time for her when he does. Support given. Daughters trying to encourage more self care of mom but she is reluctant to leave Campbell's side. I also encouraged her to get some sleep, fresh air, food/fluids she needed. Pal Care to remain available as needed. Checked in with RN briefly also after my visit.
--- NOTE | 2019-01-07 15:16 | NUR ---
FAMILY DOING ALL PATIENT CARE AND FEEDING PATIENT. FAMILY REPORTS DECREASE IN INTAKE TODAY. ZARAGOZA TO GRAVITY WITH CLEAR YELLOW URINE OUTPUT. FAMILY DENIES ANY NEEDS AND DECLINES ASSISTANCE WITH CARE. REMINDED TO REPOSITION Q2 HOURS FOR COMFORT AND DO ORAL CARE NEEDED.
--- NOTE | 2019-01-07 18:28 | NUR ---
PATIENT ON COMFORT CARE, FAMILY AT BEDSIDE AND IS DOING ALL CARE FOR PATIENT. FAMILY FEELS THEY ARE UNABLE TO CARE FOR PATIENT IN HOME SETTING AND WOULD LIKE TO STAY IN HOSPITAL ON COMFORT CARE. APPETITE HAS DECREASED SIGNIFICANTLY TODAY. ROXINOL GIVEN X1 FOR PATIENT AT PATIENTS REQUEST. REMAINS ON RA, NO SOB OR AIR HUNGER NOTED.
--- NOTE | 2019-01-08 04:16 | NUR ---
SHIFT SUMMARY NO CHANGES OVERNIGHT. PT AND FAMILY DENY NEEDS T/O MOST OF THE SHIFT. FAMILY PROVIDES MOST OF CARE. WHEN ASKED IF THEY NEED ANYTHING, MOST OF THE TIME THEY DO NOT. PT AND FAMILY REMINDED TO CALL IF THERE IS ANYTHING THEY NEED. IT WAS NOTICED THIS SHIFT THAT PT HAS SOME SHEERING ON HIS COCCYX. MEPILEX PLACED FOR COMFORT AND TO PREVENT FURTHER BREAKDOWN. CYNDEE CARE AND NEW ATTENDS PROVIDED. ZARAGOZA IN PLACE PATENT AND DRAINING. PT REQUESTED ICE CREAM AND HE ATE ALL OF IT PER FAMILY. PT AWAKE AND ALERT OFF AND ON, AND WILL RESPOND TO QUESTIONS. COMFORT ASSESSED T/O SHIFT. WILL CONTINUE TO MONITOR AND REPORT TO ONCOMING RN.
--- NOTE | 2019-01-08 08:02 | NUR ---
PATIENT SLEEPING, APPEARS COMFORTABLE. FAMILY AT BEDSIDE.
--- NOTE | 2019-01-08 11:29 | NUR ---
Pt visit this AM. Pt resting in bed with his eyes closed. He appears comfortable with a FLACC score of 0/10. Pt's family present. Discussed concerns and listened as family reminisced about Pt and family life. Family reports no concerns at this time. Spoke with Pt's nurse Ella and she reports no concerns at this time. Will remain available.
--- NOTE | 2019-01-08 14:04 | NUR ---
OFFERED TO REPOSITION PATIENT, FAMILY REFUSED. STATES THEY FEEL HE IS COMFORTABLE AT THIS TIME.
--- NOTE | 2019-01-08 17:30 | NUR ---
SHIFT SUMMARY PATIENT HAS HAD NO ACUTE CHANGES. CONTINUES TO HAVE URINE OUTPUT. FAMILY REFUSING TURNS AND ATTENDS CHECKS FROM STAFF. STATES THEY WILL DO IT THEMSELF. WILL NOTIFIY STAFF IF THEY NEED ASSISTANCE.
--- NOTE | 2019-01-09 00:14 | NUR ---
PT'S REPORTING PT FEELING WARM; POSSIBLE FEVER. REQUESTED TYLENOL. PT NONRESPONSIVE SINCE YESTERDAY PER SHIFT REPORT. RECTAL TYLENOL GIVEN PER EMAR. PT'S DECLINED TO HAVE BLANKETS REMOVED OR ICE BAGS GIVEN. EVENTUALLY AGREED TO HAVE ONE BLANKET REMOVED. PT'S STATED "HE MIGHT GET CHILLED" IF BLANKETS REMOVED. AND FAMILY HAVE DECLINED TO HAVE PT REPOSITIONED IS "TAKING CARE OF THAT". URINE OUT PUT HAS SLOWED SINCE START OF SHIFT. WILL MONITOR.
--- NOTE | 2019-01-09 03:53 | NUR ---
SHIFT SUMMARY PT UNRESPONSIVE DURING SHIFT REPORT. PT'S FAMILY AT . ADMITTED FOR SEPTIC SHOCK, NOW COMFORT CARE. PER FAMILY, PT LAST RESPONSIVE YESTERDAY AM. FAMILY DECLINED TO HAVE PT REPOSITIONED PER PROTOCOL, THOUGH ASKED MULTIPLE TIMES PER SHIFT. PT'S REPORTED THAT SHE DOES IT. ZARAGOZA TO GRAVITY; PATENT. REPORTED THAT SHE THOUGHT PT FELT WARM, BUT REFUSED TO HAVE HEAT DECREASED AND SOME OF BLANKETS REMOVED. DECLINED ICE PACKS WELL. LATER REQUESTED RECTAL TYLENOL; GIVEN PER EMAR. AT , WILL CALL FOR NEEDS.
--- NOTE | 2019-01-09 07:33 | NUR ---
PATIENT PASSED AT 0722. FAMILY AT BEDSIDE. NOTIFIED BRAYAN, PALLIATIVE CARE NURSE. NOTIFIED CHARGE NURSE, STEPHEN KAUR.
--- NOTE | 2019-01-09 11:12 | NUR ---
patient picked up by services. ring sent with Manny who picked up patient.
== END 2019-01-09 07:22 | DRG 871 ==
LOC: ER 16:21 → MEDS 19:46 → ENPENDDIS 01-03 01:03 → MEDS 01-09 07:22
PROVIDERS: Emergency Medicine; Nurse Practitioner Acute Care; ADMIT Internal Medicine
DX: A40.3 Sepsis due to Streptococcus pneumoniae (principal); R65.21 Severe sepsis with septic shock; J13 Pneumonia due to Streptococcus pneumoniae; G92 Toxic encephalopathy; N17.9 Acute kidney failure, unspecified; E87.1 Hypo-osmolality and hyponatremia; N39.0 Urinary tract infection, site not specified; R64 Cachexia; Z68.1 Body mass index [BMI] 19.9 or less, adult; Z51.5 Encounter for palliative care; Z66 Do not resuscitate; E83.52 Hypercalcemia; E78.5 Hyperlipidemia, unspecified; K21.9 Gastro-esophageal reflux disease without esophagitis; E11.51 Type 2 diabetes mellitus with diabetic peripheral angiopathy without gangrene; E11.40 Type 2 diabetes mellitus with diabetic neuropathy, unspecified; E11.43 Type 2 diabetes mellitus with diabetic autonomic (poly)neuropathy; E11.319 Type 2 diabetes mellitus with unspecified diabetic retinopathy without macular edema; K31.84 Gastroparesis; Z89.512 Acquired absence of left leg below knee; Z89.611 Acquired absence of right leg above knee; F17.210 Nicotine dependence, cigarettes, uncomplicated; E11.65 Type 2 diabetes mellitus with hyperglycemia; Z79.4 Long term (current) use of insulin; Z79.899 Other long term (current) drug therapy; E86.0 Dehydration; E83.41 Hypermagnesemia; Z91.14 Patient's other noncompliance with medication regimen
CPT/HCPCS: 36415; 51702; 51798; 71046; 80047; 80048; 80053; 81001; 82550; 82570; 83605; 83735; 84100; 84300; 84484; 84550; 85014; 85025; 85610; 87040; 87086; 87186; 87449; 87804; 93005; 93010; 96361; 96365; 96367; 96375; 99285-25; J0692; J0696; J1956; J2060; J3010; J3370; J7030; J7120